=== PATIENT | female | born 1935 | race Caucasian/White ===

== ENCOUNTER → 2017-02-28 | Outpatient (CLI) | payer OTHER | LOC: BMCIMAGING 14:16 | PROVIDERS: ATTEND Internal Medicine Rheumatology | DX: Z13.820 Encounter for screening for osteoporosis (principal); M85.80 Other specified disorders of bone density and structure, unspecified site ==

== ENCOUNTER → 2017-06-15 | Outpatient (CLI) | payer OTHER | LOC: BMCIMAGING 09:18 | PROVIDERS: ATTEND Internal Medicine | DX: M48.02 Spinal stenosis, cervical region (principal); M47.892 Other spondylosis, cervical region; S09.93XA Unspecified injury of face, initial encounter ==

== ENCOUNTER → 2017-11-14 | Outpatient (CLI) | payer OTHER | LOC: BMCIMAGING 08:07 | PROVIDERS: ATTEND Internal Medicine | DX: Z12.31 Encounter for screening mammogram for malignant neoplasm of breast (principal) ==

== ENCOUNTER 2018-10-25 12:49 | Emergency (ER) | payer OTHER ==
--- NOTE | 2018-10-25 12:59 | EDPHY ---
H & P Time Seen by Provider: 10/25/18 12:58 HPI/ROS: Chief complaint. Trouble swallowing, reflux problems HPI. Patient is an 83-year-old female who presents to emergency department with complaint of 1 month of feeling reflux symptoms when she swallows food or liquids. She swallows okay but has some discomfort in the lower esophagus with swallowing. Then she feels that the food or fluid wants to come back up. No similar symptoms previously. She has no chest pain or shortness of breath. She has no symptoms other than with eating. She denies chest discomfort or shortness of breath. No abdominal pain vomiting or diarrhea. She had glaucoma surgery 1 month ago and is using some new drops. She is unsure with the new drops are. ROS 10 systems were reviewed and negative with the exception of the elements mentioned in the history of present illness Past Medical/Surgical History: Skin cancer Social History: Single, nonsmoker, no alcohol Smoking Status: Never smoked Physical Exam: General Appearance: Alert pleasant well-developed female mild distress vital signs are stable Eyes: Pupils equal and round no pallor or injection. ENT, Mouth: Mucous membranes are moist. Pharynx is unremarkable. There is no stridor. Patient is speaking normally. She is handling secretions. Respiratory: There are no retractions, lungs are clear to auscultation. Cardiovascular: Regular rate and rhythm with 1/6 systolic decrescendo murmur Gastrointestinal: Abdomen is soft and nontender, no masses, bowel sounds normal. No tenderness in the epigastrium Neurological: Awake and alert, sensory and motor exams grossly normal. Skin: Warm and dry, no rashes. Musculoskeletal: Neck is supple nontender. Extremities symmetrical, full range of motion. Psychiatric: Patient is oriented X 3, there is no agitation. Constitutional: Initial Vital Signs Temperature (C) 36.6 C 10/25/18 12:54 Heart Rate 69 10/25/18 12:54 Respiratory Rate 18 10/25/18 12:54 Blood Pressure 124/77 H 10/25/18 12:54 O2 Sat (%) 99 10/25/18 12:54 O2 Delivery Mode Room Air Allergies/Adverse Reactions: penicillin G [Penicillin G] Allergy (Verified 10/25/18 12:54) Home Medications: Medication Instructions Recorded Fosamax 10 mg 08/24/10 LORazepam 08/24/10 Restasis 08/24/10 TRAVATAN Z 08/24/10 Esomeprazole Mag Trihydrate 40 mg PO DAILY #10 10/25/18 [Nexium] Medical Decision Making - Diagnostics EKG Interpretation: EKG interpreted by me shows normal sinus rhythm normal interval and axis. QRS is otherwise normal. There is no significant ST elevation or depression. There is poor R-wave progression anterior leads. No arrhythmia. Rate 62. No previous EKGs for comparison Imaging Results: Imaging Impressions Chest X-Ray 10/25/18 13:19 Impression: Clear lungs negative portable chest. One-view chest x-ray interpreted by me as nonacute Procedures: IV normal saline ED Course/Re-evaluation: Re-evaluation at 2:45 p.m.. Patient is stable and has no symptoms currently. Patient and I discussed imaging, EKG, laboratory evaluation. We discussed treatment plan including criteria for return and importance of follow-up and further evaluation. She expresses understanding and agreement Differential Diagnosis: This appears to be GERD. I considered pancreatitis, occult neoplasm, abnormal liver function tests, cardiac and thoracic pathology - Data Points Laboratory Results: Laboratory Results 10/25/18 13:55 10/25/18 13:55 10/25/18 10/25/18 13:55 13:55 WBC 6.43 10^3/uL 10^3/uL (3.80-9.50) RBC 3.91 10^6/uL L 10^6/uL (4.18-5.33) Hgb 13.0 g/dL g/dL (12.6-16.3) Hct 38.6 % % (38.0-47.0) MCV 98.7 fL fL (81.5-99.8) MCH 33.2 pg pg (27.9-34.1) MCHC 33.7 g/dL g/dL (32.4-36.7) RDW 12.0 % % (11.5-15.2) Plt Count 189 10^3/uL 10^3/uL (150-400) MPV 9.3 fL fL (8.7-11.7) Neut % (Auto) 62.4 % % (39.3-74.2) Lymph % (Auto) 28.6 % % (15.0-45.0) Donley % (Auto) 7.6 % % (4.5-13.0) Eos % (Auto) 0.5 % L % (0.6-7.6) Baso % (Auto) 0.6 % % (0.3-1.7) Nucleat RBC Rel Count 0.0 % % (0.0-0.2) Absolute Neuts (auto) 4.01 10^3/uL 10^3/uL (1.70-6.50) Absolute Lymphs (auto) 1.84 10^3/uL 10^3/uL (1.00-3.00) Absolute Monos (auto) 0.49 10^3/uL 10^3/uL (0.30-0.80) Absolute Eos (auto) 0.03 10^3/uL 10^3/uL (0.03-0.40) Absolute Basos (auto) 0.04 10^3/uL 10^3/uL (0.02-0.10) Absolute Nucleated RBC 0.00 10^3/uL 10^3/uL (0-0.01) Immature Gran % 0.3 % % (0.0-1.1) Immature Gran # 0.02 10^3/uL 10^3/uL (0.00-0.10) Sodium 137 mEq/L mEq/L (135-145) Potassium 4.4 mEq/L mEq/L (3.5-5.2) Chloride 108 mEq/L mEq/L (97-110) Carbon Dioxide 25 mEq/l mEq/l (22-31) Anion Gap 4 mEq/L L mEq/L (6-14) BUN 18 mg/dL mg/dL (7-23) Creatinine 0.6 mg/dL mg/dL (0.6-1.0) Estimated GFR > 60 Glucose 95 mg/dL mg/dL (70-100) Calcium 8.9 mg/dL mg/dL (8.5-10.4) Total Bilirubin 0.6 mg/dL mg/dL (0.1-1.4) Conjugated Bilirubin 0.2 mg/dL mg/dL (0.0-0.5) Unconjugated Bilirubin 0.4 mg/dL mg/dL (0.0-1.1) AST 23 IU/L IU/L (14-46) ALT 27 IU/L IU/L (9-52) Alkaline Phosphatase 67 IU/L IU/L (38-126) Total Protein 6.1 g/dL L g/dL (6.3-8.2) Albumin 3.5 g/dL g/dL (3.5-5.0) Lipase 54 IU/L IU/L (23-300) Departure - Departure Disposition: Home, Routine, Self-Care Clinical Impression: GERD (gastroesophageal reflux disease) Qualifiers: Esophagitis presence: esophagitis presence not specified Qualified Code(s): K21.9 - Gastro-esophageal reflux disease without esophagitis Condition: Good Instructions: Gastroesophageal Reflux Disease (ED) Additional Instructions: Nexium daily to help soothe stomach in reflux. May use 1-2 tsp of Maalox at bedtime. Return for worsening symptoms including abdominal pain, chest pain, difficulty breathing Re-evaluation by Dr. Montiel or Bandar in 3-4 days if not improved Referrals: Davina Becerra MD [Primary Care Provider] - 3-4 days, if not improved Tacos Portillo [place] [place] - 3-4 days, if not improved Prescriptions: Esomeprazole Mag Trihydrate [Nexium] 40 mg PO DAILY #10 cap.
--- NOTE | 2018-10-25 13:59 | CPEKG ---
Test Reason : OPEN Blood Pressure : / mmHG Vent. Rate : 062 BPM Atrial Rate : 062 BPM P-R Int : 062 ms QRS Dur : 085 ms QT Int : 415 ms P-R-T Axes : -04 043 055 degrees QTc Int : 422 ms Sinus rhythm Short VT interval Anterior infarct, old Confirmed by Charles Garcia ([id number]) on 10/25/2018 1:59:23 PM Referred By: Confirmed By:Charles Garcia
[2018-10-25 14:11] LABS: PLATELET COUNT 189 10^3/uL (150-400)
[2018-10-25 15:10] VITALS: BP 127/71
--- NOTE | 2018-10-25 15:59 | ASMTCMCOM ---
CM Note CM Note Notes: Patient presents to ED from [facility] [place] for further evaluation of esophageal reflux. See ED report. NATHALIE Martell asked this CM to meet with patient after patient appeared anxious and confused while waiting for her test results. Patient is alert, pleasant and anxious about getting home before dark. She is able to tell me how (drove) and why (Dr. Becerra PCP sent her) she presented to the ED for further evaluation of her reflux. Although patient does appear quite anxious, she tells me (correctly) that she is waiting for the doctor to discharge her back home. Patient lives alone in her own home in [facility]. She states that she has friends and neighbors who are a good support system. This CM has left a message with Jimbo ZELAYA at Dr. Becerra's office regarding care coordination and have left ED CM phone number for follow up Date Signed: 10/25/2018 03:58 PM Electronically Signed By:Anay Moyer RN
== END 2018-10-25 15:10 | disposition home or self-care (01) ==
DX: K21.9 Gastro-esophageal reflux disease without esophagitis (principal); Z88.0 Allergy status to penicillin

== ENCOUNTER → 2019-03-28 | Outpatient (CLI) | payer OTHER | LOC: BMCIMAGING 08:54 ==